=== PATIENT | male | born 1955 | race Caucasian/White ===

== ENCOUNTER 2017-01-12 16:50 | Emergency (ER) | payer MEDICAID ==
[~2017-01-12] VITALS: Ht 160 cm; Wt 67.8 kg
[~2017-01-12 16:50] MED LIST: BACTDS PO; DOCU-144 PO; HYDR-3498 PO; LANT3I SC; NOVO3I SC
[2017-01-12 16:53] VITALS: Ht 160 cm; Wt 67.8 kg
[2017-01-12] MEDS ORDERED: SILVER NITRATE SWAB TOP ONE (19:00)
--- NOTE | 2017-01-12 19:56 | ERD ---
ER Documentation Chief Complaint Date/Time DATE: 01/12/17 TIME: 19:53 Chief Complaint RFA LAC HPI This is a 61-year-old male who presented to the emergency department today for bleeding from a laceration. Patient states that he had a bump on his right arm for the past 4 months and he tried to use scissors yesterday to cut it off and it was bleeding a lot and that is why he came to the emergency room. States that he is concerned because he is a diabetic and he is concerned about infection. Denies any fevers or chills. Denies any previous trauma. ROS All systems reviewed and are negative except as per history of present illness. Medications Home Meds Active Scripts Acetaminophen* (Tylophen*) 500 Mg Capsule, 1 CAP PO Q6H Y for PAIN AND OR ELEVATED TEMP, #30 CAP Prov:ISABELLE WHITE PA-C 01/12/17 Cephalexin* (Keflex*) 500 Mg Capsule, 500 MG PO QID for 7 Days, CAP Prov:ISABELLE WHITE PA-C 01/12/17 Docusate Sodium* (Colace*) 100 Mg Capsule, 100 MG PO BID Y for CONSTIPATION, # 30 CAP Prov:CHRISTOPHER RUTHERFORD MD 03/21/16 Hydrocodone Bit-Acetaminophen* (Creighton*) 5-325 Mg Tab, 1 TAB PO Q4H Y for PAIN LEVEL 6-10 for 7 Days, TAB Prov:CHRISTOPHER RUTHERFORD MD 03/21/16 Sulfamethoxazole-Trimethoprim* (Bactrim* DS) 800-160 Mg Tab, 1 TAB PO BID, #14 TAB Prov:CHRISTOPHER RUTHERFORD MD 03/21/16 Insulin Glargine* (Lantus*) 100 Unit/Ml Soln, 20 UNIT SC HS for 30 Days, BOT Prov:CHRISTOPHER RUTHERFORD MD 03/21/16 Insulin Aspart* (Novolog Insulin Pen*) 100 Unit/Ml Soln, 3 UNIT SC WITH MEALS for 30 Days, BOT Prov:CHRISTOPHER RUTHERFORD MD 03/21/16 Allergies Allergies: Coded Allergies: No Known Allergy (Unverified , 03/14/16) PMhx/Soc History of Surgery: Yes (cholecystectomy, R leg fracture surgery w/ screws) Anesthesia Reaction: No Hx Neurological Disorder: No Hx Respiratory Disorders: No Hx Cardiac Disorders: Yes (hypertension) Hx Psychiatric Problems: No Hx Miscellaneous Medical Probl: Yes (DM, Htn) Hx Alcohol Use: No Hx Substance Use: No Hx Tobacco Use: No Smoking Status: Never smoker Physical Exam Vitals Vital Signs Date Time Temp Pulse Resp B/P Pulse Ox O2 Delivery O2 Flow Rate FiO2 01/12/17 16:53 98.1 77 20 156/77 99 Physical Exam Const: No acute distress Head: Atraumatic Eyes: Normal Conjunctiva ENT: Normal External Ears, Nose and Mouth. Neck: Full range of motion..~ No meningismus. Resp: Clear to auscultation bilaterally Cardio: Regular rate and rhythm, no murmurs Abd: Soft, non tender, non distended. Normal bowel sounds Skin: Pyogenic granuloma dorsal aspect of right forearm with evidence of bleeding and partial attachment Back: No midline or flank tenderness Ext: No cyanosis, or edema. Full active range of motion right elbow and wrist Neur: Awake and alert Psych: Normal Mood and Affect Results 24 hrs Current Medications Medications (Trade) Dose Ordered Sig/Don Route PRN Reason Start Time Stop Time Status Last Admin Dose Admin Silver Nitrate (Silver Nitrate Swabs) 3 stick ONCE ONCE TOP 01/12/17 19:00 01/12/17 19:01 DC Procedures/MDM This is a 61-year-old male who presents to the emergency department today for what he stated was a laceration on his right forearm. On physical exam patient has evidence of what appears to be a pyogenic granuloma that the patient tried to cut off on his own. Patient did indicate that it bled a lot. Today on physical exam there is partial attachment of the pyogenic granuloma. I have explained to the patient that he needs to be completely removed however this would best be done by radiologic therapist to make sure that the entire granuloma is removed otherwise it will return. I have explained this to the patient. I did use silver nitrate swabs to cauterize the area and bleeding was well-controlled prior to discharge Patient is afebrile and otherwise well-appearing. Low suspicion for sepsis, deep space infection. Patient was concerned as he is a diabetic and therefore I will give him a prescription for Keflex. I have also explained to him that he needs to follow-up with his primary care physician for referral to dermatology. I have also given him a list of dermatology referrals. At this time the patient is stable for discharge and outpatient management. Patient should follow up with their PCP in the next 1-2 days. They may return to the emergency department sooner for any persistent or worsening of symptoms. Patient understood and agreed with the plan. Departure Diagnosis: Primary Impression: Pyogenic granuloma Condition: ISABELLE Hoang PA-C Jan 12, 2017 19:56
[2017-01-12] MEDS ORDERED: CEPH-443 PO (20:12)
[2017-01-12] MEDS ORDERED: ACET500C5 PO (20:13)
== END 2017-01-12 20:37 | disposition home or self-care (01) ==
LOC: FTE 16:50
DX: L98.0 Pyogenic granuloma (principal); E11.9 Type 2 diabetes mellitus without complications; I10 Essential (primary) hypertension; Z79.84 Long term (current) use of oral hypoglycemic drugs
CPT/HCPCS: Z7502; Z7610; 99283

== ENCOUNTER 2018-02-16 01:37 | Inpatient (IN) | END 2018-02-19 18:05 | disposition home or self-care (01) | DRG 871 ==